=== PATIENT | female | born 1955 | race Caucasian/White ===

== ENCOUNTER 2022-08-13 01:16 | Day surgery (SDC) | payer MEDICARE, SELFPAY ==
[2022-08-02 15:12] VITALS: BMI 25.8
[2022-08-13 11:25] VITALS: BP 141/66; PULSE 84; RESP 18; TEMP 36.2; O2SAT 100
--- NOTE | 2022-08-13 11:51 | PM.HPGS ---
History of Present Illness History of Present Illness Consent: Risks, benefits, and alternatives have been discussed and questions answered. Patient agrees to proceed with procedure. Chief complaint: hemorrhoids Narrative: Ariadne Brandt is a 67 year old female with symptomatic hemorrhoids, here for [facility] Review of Systems Constitutional: Constitutional: Denies headache(s) and Denies weakness Eyes: Eyes: Denies blurry vision ENT: Reports Normal hearing present, Denies headache(s) and Denies neck pain Cardiovascular: Cardiovascular: Denies chest pain and Denies dyspnea Respiratory: Respiratory: Denies dyspnea Gastrointestinal: Gastrointestinal: Reports no additional gastrointestinal complaints Genitourinary: Genitourinary: Denies dysuria Musculoskeletal: Musculoskeletal: Denies neck pain Integumentary/Breasts: Skin/Breast: Denies dry skin Neurologic: Reports Normal hearing present, Denies headache(s) and Denies weakness Psychiatric: Psychiatric: Denies anxiety Endocrine: Endocrine: Denies change in body appearance Hematologic/Lymphatic: Hematologic/Lymphatic: Denies easy bleeding Allergic/Immunologic: Allergic/Immunologic: Denies urticaria PMFSH Past Medical History Medical History (Updated 05/06/22 @ 14:28 by Arun Rolon MD) Arthritis Blood in stool Colon cancer screening Hemorrhoid Surgical History Surgical History Hx of right mastectomy Social History Social History Smoking packs per day: 1 Smoking cigarettes per day: 20.0 Smoking status: Never smoker Tobacco type: cigarettes Alcohol intake: never Substance use: never Living arrangements: with family Spiritual care concerns: No Meds Home Medications and Allergies Home Medications Medication Instructions Recorded Confirmed Type alprazolam 0.25 mg tablet (Xanax) 0.25 mg PO TID PRN Anxiety 05/06/22 08/02/22 History sertraline 100 mg tablet (Zoloft) 100 mg PO DAILY 05/06/22 08/02/22 History aspirin 650 mg tablet,extended 650 mg PO DAILY PRN Pain 08/02/22 08/02/22 History release prednisone 5 mg tablet 5 mg PO DAILY PRN other 08/02/22 08/02/22 History Allergies Allergy/AdvReac Type Severity Reaction Status Date / Time NSAIDS (Non-Steroidal Allergy Chest Pain Verified 08/13/22 11:22 Anti-Inflamma meperidine [From Demerol] AdvReac Mild Unknown Verified 08/13/22 11:22 metronidazole [From Flagyl] AdvReac Mild Nausea Verified 08/13/22 11:22 Bactrim AdvReac Mild Rash Uncoded 08/02/22 15:06 Vital Signs Vital Signs - 24 hr 08/13/22 11:25 Temperature 97.1 F L Pulse Rate 84 Respiratory Rate 18 Blood Pressure 141/66 H Pulse Oximetry 100 Oxygen Delivery Room Air Exam Const: General: comfortable and no acute distress HENMT: Face/Nose/Sinus: Normal nares present Eyes: General: appearance normal, both eyes and all related structures Neck: Neck: no JVD Resp: Auscultation: clear to auscultation bilaterally Cardio: Rate: regular rate Rhythm: regular rhythm GI: Inspection: non-distended GI Palp: Yes Soft to palpation Rectal Exam: heme positive stool and External hemorrhoid(s) present Skin: General skin exam: normal color Neuro: General: gait normal Speech: normal speech Extrem: General: normal to inspection Psych: Mental Status: mental status grossly normal Assessment and Plan Assessment and plan (1) Hemorrhoid: Code(s): K64.9 - Unspecified hemorrhoids Status: Acute Assessment and Plan: IRC of internal hemorrhoids
--- NOTE | 2022-08-13 11:52 | W.PM.PROC2 ---
Procedure Note - Detailed Date of Procedure 08/13/22 Pre-op Diagnosis hemorrhoids Post-op Diagnosis Same Procedure Performed irc on internal hemorrhoids Surgeon Arun Rolon MD Anesthesia None Findings sking stags with large external hemorrhoids, non-thrombosed. After introducing anoscope noted grade II internal hemorrhoids, advanced IRC probe and treated with IRC 1.5 seconds x4 Description of Procedure irc Condition Stable
== END 2022-08-13 12:00 | disposition home or self-care (01) ==
PROVIDERS: Visit Provider Internal Medicine Gastroenterology
PROC: (CPT 46930; principal; 2022-08-13 11:45)
DX: K64.8 Other hemorrhoids (principal)
CPT/HCPCS: 46930

== ENCOUNTER 2024-02-22 14:03 | Emergency (ER) | payer MEDICARE, SELFPAY ==
--- NOTE | ~2024-02-22 | XR_ITS ---
XR chest 2V Ordering provider: Sydney Lopez PA-C History: 68 years Female with . lightheadedness . Comparison: None. FINDINGS: Status post right mastectomy. MEDIASTINUM: The cardiac silhouette is not enlarged. LUNGS: No infiltrates, effusions or pneumothorax. Slightly prominent markings in the left lower lobe. Possible small nodule measuring 5 mm in the right lower lobe. Follow-up in 3 months advised OTHER: No free air under the diaphragm. Degenerative changes of the spine. IMPRESSION: Possible nodule in the right lower lobe. Follow-up in 3 months advised. No acute cardiopulmonary pathology Reviewed, dictated and finalized at location A.
[2024-02-22 14:06] VITALS: BP 165/58; PULSE 57; RESP 15; TEMP 36.5; O2SAT 100
--- NOTE | 2024-02-22 14:12 | ECG_ITS ---
Test Date: 2024-02-22 14:16:33 Measurements Intervals [place] Rate: 59 P: 54 VT: 121 QRS: 39 QRSD: 84 T: 57 QT: 427 QTc: 425 Interpretive Statements SINUS BRADYCARDIA No previous ECG available for comparison Electronically Signed On 02-22-2024 16:58:08 CDT by Elvis Bass M.D.
--- NOTE | 2024-02-22 16:31 | ED.DIZZY ---
HPI - Dizziness General Chief Complaint: Dizziness <Sydney Lopez PA-C - Last Filed: 02/27/24 17:28> Stated Complaint: dizziness <Sydney Lopez PA-C - Last Filed: 02/27/24 17:28> Time Seen by Provider: 02/22/24 16:31 <Sydney Lopez PA-C - Last Filed: 02/27/24 17:28> Focused HPI: This is a 68 year old female that presents to the ER for dizziness. Ongoing upon awakening this morning. Reports lightheadedness. Denies chest pain, shortness of breath, or palpitations. GENERAL: Well-appearing, well-nourished, and in no acute distress. HEAD: Normocephalic, atraumatic. CHEST: Clear to auscultation. ?No respiratory distress. HEART: Regular rate and rhythm.? NEURO: ?Alert and oriented x3. Patient screened in triage and initial orders placed.? ?Additional care and disposition to be based upon?diagnostic testing and treatment. <Sydney Lopez PA-C - Last Filed: 02/27/24 17:28> History of Present Illness HPI Narrative: Patient is a 68-year-old female who presents emergency department with chief complaint of dizziness. Patient reports symptoms started this morning whenever she woke up reports that she felt a lightheaded sensation reports sensation is worse when she turns her head from side to side. <Erik Baker MD - Last Filed: 02/22/24 22:07> Related Data Home Medications: Home Medications Medication Instructions Recorded Confirmed alprazolam 0.25 mg tablet (Xanax) 0.25 mg PO TID PRN Anxiety 05/06/22 08/02/22 sertraline 100 mg tablet (Zoloft) 100 mg PO DAILY 05/06/22 08/02/22 aspirin 650 mg tablet,extended 650 mg PO DAILY PRN Pain 08/02/22 08/02/22 release prednisone 5 mg tablet 5 mg PO DAILY PRN other 08/02/22 08/02/22 <RADHA Buck Last Filed: 02/27/24 17:28> Allergies/Adverse Reactions: Allergies Allergy/AdvReac Type Severity Reaction Status Date / Time NSAIDS (Non-Steroidal Allergy Chest Pain Verified 02/22/24 14:03 Anti-Inflamma meperidine [From Demerol] AdvReac Mild Unknown Verified 02/22/24 14:03 metronidazole [From Flagyl] AdvReac Mild Nausea Verified 02/22/24 14:03 Bactrim AdvReac Mild Rash Uncoded 02/22/24 14:03 <Sydney Lopez PA-C - Last Filed: 02/27/24 17:28> Review of Systems Review of Systems: A 10 system review of systems was completed on the patient and is negative except for what is stated in the HPI. Nursing and ancillary documentation was reviewed. <Erik Baker MD - Last Filed: 02/22/24 22:07> PMFSH Past Medical History Medical History: Medical History Arthritis Blood in stool Colon cancer screening Hemorrhoid <Sydney Lopez PA-C - Last Filed: 02/27/24 17:28> Surgical History Surgical History: Surgical History Hx of right mastectomy <Sydney Lopez PA-C - Last Filed: 02/27/24 17:28> Social History Social History: Social History Smoking packs per day: 1 Smoking cigarettes per day: 20.0 Smoking status: Never smoker Tobacco type: cigarettes Alcohol intake: never Substance use: never Living arrangements: with family Spiritual care concerns: No <Sydney Lopez PA-C - Last Filed: 02/27/24 17:28> Exam Narrative: GENERAL: Well-appearing, well-nourished, and in no acute distress. HEAD: Normocephalic, atraumatic. EYES: PERRLA and EOMI. ENT: Nares clear, no rhinorrhea or epistaxis. Mucous membranes moist. NECK: Supple. CHEST: Clear to auscultation. No respiratory distress. HEART: Regular rate and rhythm. No murmur heard. Normal peripheral pulses. ABDOMEN: Soft, nontender, nondistended, normal active bowel sounds. EXTREMITIES: Normal range of motion. No edema. SKIN: Warm, dry, no rash. NEURO: No focal deficits. Alert and oriented x3. PSYCH: Normal mood and affect.
--- NOTE | 2024-02-22 16:47 | PC.NURSE ---
attempted to call pt 2 to get vitals and blood work. pt did not respond
[2024-02-22 17:00] VITALS: BP 141/53; PULSE 60; RESP 16; O2SAT 100
[2024-02-22 17:16] LABS: Add Urine Microscopic? NO; Appearance Urine Clear (Clear); Bilirubin Urine Negative (Negative); Blood Urine Negative (Negative); Color Urine Yellow (Yellow); Glucose Urine UA Negative (Negative); Ketones Urine Negative (Negative); Leukocyte Esterase Ur Negative LEU/UL (Negative); Nitrate Urine Negative (Negative); Protein Urine Negative (Negative); Specific Grav Ur 1.014 (1.001-1.035); Urobilinogen Urine 0.2 mg/dL (<2.0)
[2024-02-22 17:24] LABS: Alanine Aminotransferase 17 U/L (6-35); Albumin Level 4.9 g/dL (3.5-5.1); Alkaline Phosphatase 82 U/L (38-126); Anion Gap 11 mmol/L (4-12); Aspartate Amino Transferase 22 U/L (14-36); Bilirubin,Total 0.4 mg/dL (0.2-1.3); Blood Urea Nitrogen 11 mg/dL (7-17); Calcium 9.7 mg/dL (8.4-10.2); Carbon Dioxide 26 mmol/L (22-30); Chloride 102 mmol/L (98-107); Estimated CRCL calculation 67 ml/min; Estimated Glomerular Filt Rate > 60; Glucose 141 mg/dL (65-110); Potassium 3.8 mmol/L (3.4-5.0); Sodium 139 mmol/L (137-145)
[2024-02-22 17:25] LABS: Basophils Absolute Auto 0.1 K/mm3 (0.0-0.1); Basophils Percent Auto 1.1 % (0.2-1.2); Eosinophils Absolute Auto 0.4 K/mm3 (0-0.3); Eosinophils Percent Auto 3.7 % (0-4.4); Hematocrit 44.4 % (37.0-47.0); Hemoglobin 14.9 g/dL (12.0-15.0); Immature Granulocyte Absolute 0.02 K/mm3 (0.00-0.031); Immature Granulocyte Percent A 0.2 % (0-0.5); Lymphocytes Absolute Auto 3.67 K/mm3 (0.9-3.2); Lymphocytes Percent Auto 35.3 % (18.3-44.2); Mean Corpuscular HGB Conc 33.6 g/dl (32-36); Mean Corpuscular Volume 86.5 fl (80-100); Mean Platelet Volume 9.7 fl (7.4-10.4); Monocytes Absolute Auto 0.6 K/mm3 (0.1-0.6); Monocytes Percent Auto 6.1 % (2.6-8.5); Neutrophils Absolute Auto 5.6 K/mm3 (1.3-6.7); Neutrophils Percent Auto 53.6 % (45.5-73.1); Platelet Count Result 286 k/mm3 (150-375); Red Blood Count 5.13 M/mm3 (4.2-5.4); Red Cell Distribution Width 13.5 % (11.5-14.5); White Blood Count 10.4 K/mm3 (4.5-10.0)
[2024-02-22] MEDS: MECLIZINE HCL 25 MG TABLET PO (19:59)
[2024-02-22] MEDS: SODIUM CHLORIDE 0.9% IV 1,000 ML 999 ML IV CONT (20:03)
[2024-02-22 20:50] VITALS: BP 141/61; PULSE 58
[2024-02-22 20:53] VITALS: BP 158/63; PULSE 65
[2024-02-22 20:54] VITALS: BP 145/73; PULSE 60
== END 2024-02-22 22:24 | disposition home or self-care (01) ==
PROVIDERS: Physician Assistant; Emergency Provider Emergency Medicine; PCP Family Medicine
DX: R42 Dizziness and giddiness (principal); M19.90 Unspecified osteoarthritis, unspecified site; F17.210 Nicotine dependence, cigarettes, uncomplicated; Z90.11 Acquired absence of right breast and nipple; Z79.82 Long term (current) use of aspirin; Z79.899 Other long term (current) drug therapy
CPT/HCPCS: 36415; 71046; 80053; 81003; 85025; 93005; 96360; 99283; A9270; J7030

== ENCOUNTER 2024-04-12 10:47 | Outpatient (CLI) | payer MEDICARE, SELFPAY ==
--- NOTE | ~2024-04-12 | XR_ITS ---
EXAMINATION: XR ankle LT 2V DATE: 04/12/2024 12:57 INDICATION: Multiple joint pain. TECHNIQUE: 2 views of left ankle were obtained. COMPARISON: None. FINDINGS: Alignment is normal. No fracture. Joint spaces are normal. There is an enthesophyte of post erior aspect of calcaneal tuberosity. IMPRESSION: 1. No arthritis. Reviewed, dictated and finalized at location A. NICAL COORDINATOR IMPRESSION: 1. No arthritis.
--- NOTE | ~2024-04-12 | XR_ITS ---
EXAMINATION: XR sacroiliac joints min 3V DATE: 04/12/2024 12:57 INDICATION: Multiple joint pain. TECHNIQUE: 3 views of the sacroiliac joints were obtained. COMPARISON: None. FINDINGS: Alignment is normal. No fracture. There is mild osteoarthritis of the sacroiliac joints. Th ere is mild osteoarthritis of the hip joints. There is mild lumbar spondylosis. IMPRESSION: 1. Mild polyarticular osteoarthritis. No evidence of inflammatory arthropathy. Reviewed, dictated and finalized at location A. UNITY ENGAGEMENT REPRESENTATIVE
--- NOTE | ~2024-04-12 | XR_ITS ---
EXAMINATION: XR ankle RT 2V DATE: 04/12/2024 12:57 INDICATION: Multiple joint pain. TECHNIQUE: 3 views of right ankle were obtained. COMPARISON: None. FINDINGS: Alignment is normal. No fracture. There is mild osteoarthritis of the ankle joint medially. There is an enthesophyte of posterior aspect of calcaneal tuberosity. IMPRESSION: 1. Mild ankle joint osteoarthritis. Reviewed, dictated and finalized at location A. LE BPM CONSULTANT
[2024-04-12 12:24] LABS: Basophils Absolute Auto 0.1 K/mm3 (0.0-0.1); Basophils Percent Auto 0.9 % (0.2-1.2); Eosinophils Absolute Auto 0.3 K/mm3 (0-0.3); Eosinophils Percent Auto 2.6 % (0-4.4); Hematocrit 43.7 % (37.0-47.0); Hemoglobin 14.1 g/dL (12.0-15.0); Immature Granulocyte Absolute 0.03 K/mm3 (0.00-0.031); Immature Granulocyte Percent A 0.3 % (0-0.5); Lymphocytes Absolute Auto 2.91 K/mm3 (0.9-3.2); Lymphocytes Percent Auto 28.6 % (18.3-44.2); Mean Corpuscular HGB Conc 32.3 g/dl (32-36); Mean Corpuscular Hemoglobin 28.2 pg (26-34); Mean Corpuscular Volume 87.4 fl (80-100); Mean Platelet Volume 9.7 fl (7.4-10.4); Monocytes Absolute Auto 0.6 K/mm3 (0.1-0.6); Monocytes Percent Auto 6.2 % (2.6-8.5); Neutrophils Absolute Auto 6.2 K/mm3 (1.3-6.7); Neutrophils Percent Auto 61.4 % (45.5-73.1); Platelet Count Result 282 k/mm3 (150-375); Red Cell Distribution Width 13.7 % (11.5-14.5); White Blood Count 10.2 K/mm3 (4.5-10.0)
[2024-04-12 12:33] LABS: Add Urine Microscopic? NO; Appearance Urine Clear (Clear); Bilirubin Urine Negative (Negative); Blood Urine Negative (Negative); Color Urine Yellow (Yellow); Glucose Urine UA Negative (Negative); Ketones Urine Negative (Negative); Leukocyte Esterase Ur Negative LEU/UL (Negative); Nitrate Urine Negative (Negative); Protein Urine Negative (Negative); Specific Grav Ur 1.008 (1.001-1.035); Urobilinogen Urine 0.2 mg/dL (<2.0); pH Urine 6.5 (5.0-9.0)
[2024-04-12 12:45] LABS: Alanine Aminotransferase 22 U/L (6-35); Alkaline Phosphatase 83 U/L (38-126); Anion Gap 8 mmol/L (4-12); Aspartate Amino Transferase 27 U/L (14-36); Bilirubin,Total 0.6 mg/dL (0.2-1.3); Blood Urea Nitrogen 12 mg/dL (7-17); Calcium 9.8 mg/dL (8.4-10.2); Carbon Dioxide 30 mmol/L (22-30); Chloride 102 mmol/L (98-107); Creatine Kinase 68 U/L (30-135); Estimated Glomerular Filt Rate > 60; Glucose 72 mg/dL (65-110); Potassium 4.3 mmol/L (3.4-5.0); Sodium 140 mmol/L (137-145); Uric Acid 3.7 mg/dL (2.5-7.5)
[2024-04-12 12:46] LABS: Complement C3 125 mg/dL (88-165); Rheumatoid Factor 85.1 IU/ML (<12)
[2024-04-12 13:29] LABS: Erythrocyte Sedimentation Rate 14 mm/hr (0-20)
[2024-04-12 13:48] LABS: Hepatitis C Virus Antibody Negative (Negative)
[2024-04-12 14:58] LABS: CRP < 0.5 mg/dL (<1.0)
[2024-04-13 10:35] LABS: Rapid Plasma Reagin Non-Reactive (NonReactive)
[2024-04-13 13:02] LABS: Aldolase 4.5 U/L (< OR = 8.1)
[2024-04-13 16:23] LABS: ANA Cascade Screen NEGATIVE (NEGATIVE); RNP Antibodies <1.0 NEG AI (<1.0 NEG); SS-A <1.0 NEG AI (<1.0 NEG); SS-B <1.0 NEG AI (<1.0 NEG); Scleroderma 70 Antibody <1.0 NEG AI (<1.0 NEG)
[2024-04-16 12:13] LABS: Cyclic Citrullinated Peptide 198 UNITS
[2024-04-16 13:12] LABS: Complement Total CH50 >60 U/mL (31-60)
[2024-04-17 15:24] LABS: Angiotensin Converting Enzyme 44 U/L (9-67)
== END 2024-04-12 10:48 | disposition home or self-care (01) ==
PROVIDERS: PCP Family Medicine; Visit Provider Nurse Practitioner
DX: M25.50 Pain in unspecified joint (principal); M53.3 Sacrococcygeal disorders, not elsewhere classified; M19.071 Primary osteoarthritis, right ankle and foot
CPT/HCPCS: 36415; 72202; 73600; 80053; 81003; 82085; 82164; 82550; 84550; 85025; 85652; 86038; 86039; 86140; 86160; 86162; 86200; 86225; 86235; 86364; 86430; 86592; 86800; 86803

== ENCOUNTER 2024-10-22 11:03 | Emergency (ER) | payer MEDICARE, SELFPAY ==
--- NOTE | 2024-10-22 11:11 | ED.EAR ---
HPI - Ear Problem General Chief complaint: Skin/Abscess/Foreign Body Stated complaint: Ear Pain Source: patient Mode of arrival: ambulatory Limitations: no limitations History of Present Illness HPI Narrative: Patient is a 69 year old female who presents to the clinic with complaints of ear tenderness behind her right ear x 1 day. She has not been using any medications over the counter. Denies any new products, eyewear, or ear pieces. Related Data Home Medications ?Medication ?Instructions ?Recorded ?Confirmed ?Last Taken ?Type alprazolam 0.25 mg tablet (Xanax) 0.25 mg PO TID PRN Anxiety 05/06/22 08/02/22 08/13/22 History sertraline 100 mg tablet (Zoloft) 100 mg PO DAILY 05/06/22 08/02/22 08/13/22 History aspirin 650 mg tablet,extended 650 mg PO DAILY PRN Pain 08/02/22 08/02/22 08/13/22 History release Allergies Allergy/AdvReac Type Severity Reaction Status Date / Time NSAIDS (Non-Steroidal Allergy Chest Pain Verified 10/22/24 11:20 Anti-Inflamma meperidine (From Demerol) AdvReac Mild Unknown Verified 10/22/24 11:20 metronidazole (From Flagyl) AdvReac Mild Nausea Verified 10/22/24 11:20 Bactrim AdvReac Mild Rash Uncoded 10/22/24 11:20 Review of Systems Review of Systems: CONSTITUTIONAL: Denies malaise, chills, ?or fever. EYES: Denies visual changes, redness, or discharge. ENT: Denies rhinorrhea, congestion, sinus pain, and sore throat. CARDIOVASCULAR: Denies chest pain, palpitations, or edema. RESPIRATORY: Denies cough or dyspnea. GASTROINTESTINAL: Denies abdominal pain, nausea, vomiting, diarrhea SKIN: Reports redness and bump behind her right ear. MUSCULOSKELETAL: Denies myalgia. NEUROLOGIC: Denies headache. All systems reviewed & are unremarkable except as noted in HPI and below PMFSH Past Medical History Medical History Colon cancer screening Blood in stool Hemorrhoid Arthritis Surgical History Surgical History Hx of right mastectomy Social History Social History Smoking packs per day: 1 Smoking cigarettes per day: 20.0 Smoking status: Never smoker Tobacco type: cigarettes Alcohol intake: never Substance use: never Living arrangements: with family Spiritual care concerns: No Comments At time of signature, I have reviewed and agree with nursing past medical, surgical, social and family history unless otherwise noted. Please see nursing chart for further information. There is no relevant family history pertinent to the presenting complaint. Exam Narrative: GENERAL: Well-appearing, well-nourished, and in no acute distress. HEAD: Normocephalic EYES: PERRLA, conjunctivae clear ENT: Nares clear. Mucous membranes moist. ?TM's with normal light reflex, canals not erythematous, no drainage, no tragal tenderness. Oropharynx not erythematous without lesions. ?no drooling, no hoarseness, no trismus, uvula midline. NECK: Supple. No lymphadenopathy CHEST: Clear to auscultation, breath sounds equal. No wheezing, rhonchi, rales, or stridor. No respiratory distress, speaks in full sentences. HEART: Regular rate and rhythm. No murmur heard. SKIN: Warm, dry. 4 cm erythemic rash noted postauricular. Nontender, no edema. NEURO: Alert and oriented x3. PSYCH: Normal mood and affect. Course Course Level of Care: Express Care Visit Vital Signs Vital signs: Reviewed Medical Decision Making MDM Narrative Medical decision making narrative: Discussed physical exam findings. Antibiotic and triamcinolone cream for dermatitis. Discussed possibility of mastoiditis and the need for her to go to ED if symptoms are not improving or worsening. Advised supportive measures and signs/symptoms to go to the ER. Pt is appropriate for outpatient treatment and follow up. Differential Diagnosis Differential Diagnosis: Dermatitis, mastoiditis, eczema, urticaria, insect bites, impetigo Critical Care Time Critical Care Time Critical Care Time: No Discharge Plan Discharge Clinical Impression: Dermatitis Patient Disposition: Home Condition: Stable Instructions: Antibiotic Form, Dermatitis (ED) Additional Instructions: The most important part of your care is follow up with Primary care provider. Take anitbiotic as prescribed. Avoid hot showers, Take cool showers. Wash the area with gentle soap and water only. Use skin cream as prescribed to reduce itchiness Avoid scratching when possible to prevent worsening of the condition and disruption of the skin that could lead to bacterial infection To relieve itching, place a cool washcloth or some ice over the area that itches, rather than scratching Follow up with primary care provider or seek ER if you have trouble breathing, become hoarse, or start wheezing, develop abdomen cramps, vomiting or feel dizzy. Patient Language: Mauritian Prescriptions: New amoxicillin-pot clavulanate 875-125 mg tablet 1 tablet PO Q12H 10 Days Qty: 20 0RF triamcinolone acetonide 0.1 % cream 1 applic topical BID Qty: 30 0RF No Action sertraline [Zoloft] 100 mg tablet 100 mg PO DAILY alprazolam [Xanax] 0.25 mg tablet 0.25 mg PO TID PRN (Reason: Anxiety) aspirin 650 mg Tablet Extended Release 650 mg PO DAILY PRN (Reason: Pain) Follow-up/Referrals: PHYSICIAN,[employer] M[employer] AND LATHE OPERATOR [Primary Care Provider] - Time of Disposition: 11:41
[2024-10-22 11:13] VITALS: BP 130/67; PULSE 64; RESP 16; TEMP 36.3; O2SAT 100
== END 2024-10-22 11:49 | disposition home or self-care (01) ==
DX: L30.9 Dermatitis, unspecified (principal); F17.210 Nicotine dependence, cigarettes, uncomplicated; M19.90 Unspecified osteoarthritis, unspecified site; Z90.11 Acquired absence of right breast and nipple
CPT/HCPCS: 99213; G0463

== ENCOUNTER 2025-04-29 10:48 | Emergency (ER) | payer MEDICARE, SELFPAY ==
[2025-04-29 11:01] VITALS: BP 126/67; PULSE 81; RESP 16; TEMP 36.8; O2SAT 100
--- NOTE | 2025-04-29 11:21 | ED.URI ---
HPI - URI/Sore Throat General Chief Complaint: Upper Respiratory Infection Stated Complaint: Sinus Infection Symptoms Time Seen by Provider: 04/29/25 11:21 Source: patient, RN notes reviewed and old records reviewed Mode of arrival: ambulatory Limitations: no limitations History of Present Illness HPI Narrative: 69-year-old female presents to [facility] with at least 1 week of sinus congestion, scratchy throat, postnasal drainage, cough and headache. Has not taken anything for her symptoms. Onset (ago): day(s) (7-) Treatments prior to arrival: none Related Data Home Medications ?Medication ?Instructions ?Recorded ?Confirmed ?Last Taken ?Type alprazolam 0.25 mg tablet (Xanax) 0.25 mg PO TID PRN Anxiety 05/06/22 04/29/25 08/13/22 History sertraline 100 mg tablet (Zoloft) 100 mg PO DAILY 05/06/22 04/29/25 08/13/22 History aspirin 650 mg tablet,extended 650 mg PO DAILY PRN Pain 08/02/22 04/29/25 08/13/22 History release Allergies Allergy/AdvReac Type Severity Reaction Status Date / Time NSAIDS (Non-Steroidal Allergy Chest Pain Verified 04/29/25 11:05 Anti-Inflamma meperidine (From Demerol) AdvReac Mild Unknown Verified 04/29/25 11:05 metronidazole (From Flagyl) AdvReac Mild Nausea Verified 04/29/25 11:05 Review of Systems Review of Systems: All systems reviewed & are unremarkable except as noted in HPI and below Constitutional: Constitutional: Reports as per HPI, Denies fever(s) and Reports headache(s) ENT: Reports as per HPI, Reports nasal congestion and Reports sore throat Cardiovascular: Cardiovascular: Reports no additional cardiovascular complaints, Denies chest pain and Denies dyspnea Respiratory: Respiratory: Reports as per HPI, Denies chest congestion, Reports cough and Denies dyspnea Musculoskeletal: Musculoskeletal: Reports no additional musculoskeletal complaints Integumentary/Breasts: Skin/Breast: Reports system reviewed and no additional complaints, except as docu PMFSH Past Medical History Medical History Colon cancer screening Blood in stool Hemorrhoid Arthritis Surgical History Surgical History Hx of right mastectomy Social History Social History Smoking packs per day: 1 Smoking cigarettes per day: 20.0 Smoking status: Never smoker Tobacco type: cigarettes Alcohol intake: never Substance use: never Living arrangements: with family Spiritual care concerns: No Comments At the time of my signature, I reviewed and agree with the nursing past medical, surgical, social, and family history. There is no relevant family history pertinent to the patient complaint. Exam Const: General: cooperative, healthy appearing, comfortable, no acute distress, well developed, alert and well nourished Nutritional Appearance: well nourished Orientation/consciousness: patient oriented x3 Limitations: no limitations HENMT: Head: normal to inspection Ears: hearing grossly normal bilaterally, external ears normal, TM's normal bilaterally, EAC's normal, mastoids normal and no periauricular adenopathy Face and sinus: normal facial exam and face symmetric Mouth: Yes Normal oral and palatal mucosa present, Yes lip normal, Yes tongue normal and Yes moist mucous membranes Throat: posterior oropharynx normal, uvula midline, postnasal drainage and no uvular edema Eyes: General: appearance normal, both eyes and all related structures Alignment and Position: alignment normal Neck: Neck: normal visual inspection, full ROM, no lymphadenopathy and no meningeal signs Chest: Chest palpation & inspection: normal inspection of the chest Resp: Effort & Inspection: normal respiratory effort and able to speak in complete sentences Auscultation: clear to auscultation bilaterally, no crackles, no rales, no rhonchi and no wheezes Cardio: Rate: regular rate Skin: General skin exam: normal color and no rashes or lesions noted Neuro: General: patient oriented x3, gait normal, moves all extremities and no meningeal signs Cognition (Neuro): normal cognition Speech: normal speech Gait exam (Neuro): Normal gait present Extrem: General: normal to inspection, full ROM, capillary refill normal and normal gait Psych: Appearance: grossly normal and well kempt Mental Status: mental status grossly normal Speech and movement: Normal speech and movement present and Clear speech present Affect: normal affect Attitude: cooperative Course Course Level of Care: Express Care Visit Vital Signs Vital signs: Vital Signs Temperature 98.2 F 04/29/25 11:01 Pulse Rate 81 04/29/25 11:01 Respiratory Rate 16 04/29/25 11:01 Blood Pressure 126/67 04/29/25 11:01 Pulse Oximetry 100 04/29/25 11:01 Oxygen Delivery Room Air 04/29/25 11:01 Temperature 98.2 F 04/29/25 11:01 Pulse Rate 81 04/29/25 11:01 Respiratory Rate 16 04/29/25 11:01 Blood Pressure 126/67 04/29/25 11:01 Pulse Oximetry 100 04/29/25 11:01 Oxygen Delivery Room Air 04/29/25 11:12 reviewed MDM MDM Narrative Medical decision making narrative: Patient sitting comfortably in exam room. Patient is nontoxic, vitals stable. Patient presents with 7-10 days of URI symptoms most likely viral but due to length of symptoms, age will prescribe antibiotic to cover sinusitis and bronchitis. Patient has not taken anything for her symptoms. Discussed [id number] treatments are just as important as prescribed medication. Patient is appropriate for outpatient treatment with close follow-up Discharge instructions reviewed with patient, as well as provided in writing per nursing staff. The instructions also include specific and strict return/GO TO THE ER as well as f/u information. All questions have been answered, and the patient deny any further questions with discharge and discharge plan. Some parts of this dictation were generated by voice recognition software and may contain typographical and/or grammatical inaccuracies. Differential Diagnosis Differential Diagnosis: Differential diagnostic considerations for upper respiratory infection include upper respiratory infection, croup, otitis media, sinusitis, viral infection, bronchitis, influenza, pharyngitis, strep, uvulitis.? Medical Records I have reviewed the following patient records and this information was taken into consideration when formulating the assessment and plan.: previous clinic visits Discharge Plan Discharge Clinical Impression: Bronchitis Upper respiratory infection Qualifiers: URI type: unspecified viral URI Qualified Code(s): J06.9 - Acute upper respiratory infection, unspecified Sinusitis Qualifiers: Sinusitis location: unspecified location Chronicity: acute Recurrence: not specified as recurrent Qualified Code(s): J01.90 - Acute sinusitis, unspecified Patient Disposition: Home Condition: Stable Instructions: Antibiotic Form, Sinusitis (ED), Acute Bronchitis (ED) Additional Instructions: It is very important to treat your symptoms. Drink plenty of water, Gatorade, Pedialyte, ice pops or Jell-O. -Take Tylenol per package instructions as needed for headache and body ache -Antihistamine medication such as Zyrtec/Claritin during the day can help improve symptoms. -doing daily nasal irrigations can help relieve pressure your sinuses. Things like a Neti pot -Use Flonase twice a day for 5 days then daily to help reduce the inflammation and dry up your sinuses. -You can also use Mucinex. Be sure to drink plenty of water with this medication at least 8 ounces with every dose and it is important to drink 8 to 10 glasses of water per day. Water is a natural decongestant -Eat and drink things that are easy to swallow, like tea or soup, or popsicles. -Oral rinses such as: Salt water gargles and/or may use topical anesthetic (eg. Chloraseptic spray) or lozenges to relieve dryness or throat pain). -Frequent hand washing or hand form building supervisor is one of the best ways to prevent spread of infection. -Using a vaporizer or humidifier at night will also help thin secretions and help with coughing up phlegm. -Follow up with primary care provider in 7-10 days if condition is not improving - For new or worsening symptoms go directly to the nearest ER Patient Language: Kinyarwanda Prescriptions: New doxycycline monohydrate 100 mg tablet 100 mg PO BID Qty: 14 0RF No Action triamcinolone acetonide 0.1 % cream 1 applic topical BID Qty: 30 0RF sertraline [Zoloft] 100 mg tablet 100 mg PO DAILY alprazolam [Xanax] 0.25 mg tablet 0.25 mg PO TID PRN (Reason: Anxiety) aspirin 650 mg Tablet Extended Release 650 mg PO DAILY PRN (Reason: Pain) Follow-up/Referrals: PHYSICIAN,BREASTFEEDING PROGRAM COORDINATOR [Primary Care Provider, Internal Medicine] Stand Alone Forms: Work/School Release IP Time of Disposition: 11:37
== END 2025-04-29 11:41 | disposition home or self-care (01) ==
PROVIDERS: Emergency Provider Nurse Practitioner
DX: J40 Bronchitis, not specified as acute or chronic (principal); J06.9 Acute upper respiratory infection, unspecified; J01.90 Acute sinusitis, unspecified; F17.210 Nicotine dependence, cigarettes, uncomplicated; E03.9 Hypothyroidism, unspecified; M19.90 Unspecified osteoarthritis, unspecified site; Z90.11 Acquired absence of right breast and nipple
CPT/HCPCS: 99213; G0463

== ENCOUNTER 2025-05-22 11:56 | Emergency (ER) | payer MEDICARE, SELFPAY ==
[2025-05-22 12:03] VITALS: BP 105/64; PULSE 96; RESP 16; TEMP 36.7; O2SAT 100
--- NOTE | 2025-05-22 12:25 | ED_ITS ---
HPI - Ear Problem General Chief complaint: Ear Stated complaint: R ear pain Time Seen by Provider: 05/22/25 12:25 Source: patient Mode of arrival: ambulatory Limitations: no limitations History of Present Illness HPI Narrative: 69 yo F presents with fatigue, congestion, R ear muffled. R ear not painful. Afebrile. All systems reviewed and negative except as noted above. Related Data Home Medications ?Medication ?Instructions ?Recorded ?Confirmed ?Last Taken ?Type alprazolam 0.25 mg tablet (Xanax) 0.25 mg PO TID PRN A nxiety 05/06/22 05/22/25 08/13/22 History sertraline 100 mg tablet (Zoloft) 100 mg PO DAILY 04/2205/22/25 08/13/22 History aspirin 650 mg tablet,extended 650 mg PO DAILY PRN Moreno n 08/02/22 05/22/25 08/13/22 History release Allergies Allergy/AdvReac Type Severity Reaction Status Date / Time NSAIDS (Non-Steroidal Allergy Chest Pain Verified 05/22/25 12:04 Anti-Inflamma meperidine (From Demerol) AdvReac Mild Unknown Verified 05/22/25 12:04 metronidazole (From Flagyl) AdvReac Mild Nausea Verified 05/22/25 12:04 PMFSH Past Medical History Medical History Colon cancer screening Blood in stool Hemorrhoid Arthritis Surgical History Surgical History Hx of right mastectomy Social History Social History Smoking packs per day: 1 Smoking cigarettes per day: 20.0 Smoking status: Never smoker Tobacco type: cigarettes Alcohol intake: never Substance use: never Living arrangements: with family Spiritual care concerns: No Comments At time of signature, agree with nursing past medical, surgical, social and family history. There is no relevant family history pertinent to the presenting complaint. Exam Narrative: GENERAL: This is a well-nourished, well-developed patient, in no apparent distress. HEAD: normocephalic, atraumatic. EYES: PERRL. Sclera clear/white. Vision is grossly intact. EARS: External ears normal, auditory canals clear and without drainage, Fluid to right TM, opaque in color with dull light reflex. Left TM is normal. NOSE: External nose normal with no obvious nasal discharge, nares without redness, no rhinorrhea. THROAT: Mucous membranes moist, posterior pharynx clear. NECK: Neck supple, non-tender without lymphadenopathy, masses or thyromegaly. CARDIOVASCULAR: Regular rate and rhythm without murmurs, gallops, or rubs. RESPIRATORY: Clear to auscultation. Breath sounds equal bilaterally. No wheezes, rales, or rhonchi. SKIN: warm, Dry, intact with no suspicious lesions or rash, good texture and turgor. NEURO: awake, alert, and oriented to person, place and time. There were no obvious focal neurologic abnormalities. EXTREMITIES: No joint tenderness, effusion, or edema noted. Course Course Level of Care: Express Care Visit Vital Signs Vital signs: Vital Signs Temperature 36.7 C 05/22/25 12:03 Pulse Rate 96 05/22/25 12:03 Respiratory Rate 16 05/22/25 12:03 Blood Pressure 105/64 05/22/25 12:03 Pulse Oximetry 100 05/22/25 12:03 Oxygen Delivery Room Air 05/22/25 12:03 Temperature 36.7 C 05/22/25 12:03 Pulse Rate 96 05/22/25 12:03 Respiratory Rate 16 05/22/25 12:03 Blood Pressure 105/64 05/22/25 12:03 Pulse Oximetry 100 05/22/25 12:03 Oxygen Delivery Room Air 05/22/25 12:03 Reviewed MDM Differential Diagnosis Differential Diagnosis: Differential diagnostic considerations for upper respiratory infection include upper respiratory infection, croup, otitis media, sinusitis, viral infection, bronchitis, influenza, pharyngitis, strep, uvulitis.? Discharge Plan Discharge Clinical Impression: Acute serous otitis media of right ear Patient Disposition: Home Condition: Stable Instructions: Fluid In The Ear (Serous Otitis Media) (ED) Additional Instructions: your COVID, influenza and strep test was negative today. Purchase [id number] Claritin D and Flonase and take as directed on packaging. See your doctor if not improving. Patient Language: Bulgarian Prescriptions: No Action sertraline [Zoloft] 100 mg tablet 100 mg PO DAILY alprazolam [Xanax] 0.25 mg tablet 0.25 mg PO TID PRN (Reason: Anxiety) aspirin 650 mg Tablet Extended Release 650 mg PO DAILY PRN (Reason: Pain) Follow-up/Referrals: PHYSICIAN NOT ON STAFF,NONSTAFF [Primary Care Provider] Time of Disposition: 13:01
[2025-05-22 12:44] LABS: EDSTREPNEGPOS1 Negative (Negative)
[2025-05-22 12:49] LABS: EDINFLUASCREEN Negative (Negative); EDINFLUBSCREEN Negative (Negative)
== END 2025-05-22 13:05 | disposition home or self-care (01) ==
PROVIDERS: Emergency Provider Nurse Practitioner Family
DX: H66.91 Otitis media, unspecified, right ear (principal)
CPT/HCPCS: 87081; 87804; 87880; 99213; G0463